=== PATIENT | male | born 1990 | race Caucasian/White ===

== ENCOUNTER 2025-05-07 08:32 | Outpatient (CLI) | payer BC, SELFPAY | END 2025-05-07 08:33 | disposition home or self-care (01) | LOC: AMB 05-10 19:29 | PROVIDERS: Visit Provider Emergency Medicine Emergency Medical Services | DX: R07.89 Other chest pain (principal); R20.0 Anesthesia of skin | CPT/HCPCS: A0425; A0427 ==

== ENCOUNTER 2025-05-07 09:02 | Emergency (ER) | payer BC, SELFPAY ==
[2025-05-07 09:15] VITALS: BP 152/105; PULSE 81; RESP 18; TEMP 36.4; O2SAT 98; BMI 35.3
--- NOTE | 2025-05-07 09:52 | ED_ITS ---
HPI - Anxiety General Chief Complaint: Anxiety Stated Complaint: Anxiety Time Seen by Provider: 05/07/25 09:37 History of Present Illness HPI narrative: This 34-year-old male comes in reporting anxiety and panic symptoms after having nausea and vomiting for the past 3 days. He takes Seroquel at night and has been taking Effexor but because of the nausea and vomiting he did not take it for the past 3 days. He states that he is typically taking 225 mg daily. He also uses medical marijuana daily. He had some Zofran which he felt was helping him at times but today he use that is all the bowl tablet and immediately spit up. He feels better now with regard to the panic symptoms he was feeling. He does not report any suicidality or feeling unsafe to himself. Related Data Home Medications ?Medication ?Instructions ?Recorded ?Confirmed quetiapine .ROUTE 05/07/25 venlafaxine PO 05/07/25 Previous Rx's ?Medication ?Instructions ?Recorded lorazepam 1 mg tablet (Ativan) 1 mg PO BID-TID PRN #6 tabs 05/07/25 ondansetron 4 mg disintegrating 4 mg PO Q6H #20 tabs 1 07/07/24 tablet Allergies Allergy/AdvReac Type Severity Reaction Status Date / Time Penicillins Allergy Unknown Verified 05/07/25 09:14 Review of Systems Status of ROS: Reports: 10 or more systems reviewed and unremarkable except as noted in History and below Narrative: Constitutional: No fevers, no weight gain or loss. Eyes: No discharge. No vision changes. HENT: No congestion, no sore throat, no ear pain. Cardiovascular: No chest pain, no palpitations. Respiratory: No shortness of breath, no wheezes, no cough. Gastrointestinal: No abdominal pain, no diarrhea. Nausea and vomiting for the past 3 days. Genitourinary: No dysuria, no hematuria. Musculoskeletal: Normal range of motion. Skin: No rashes, no pruritis. Neurological: No dizziness, weakness, sensory change, speech change. Endo/Heme/Allergies: No bruising or bleeding. No polydipsia. Pysch: no suicidality, no insomnia. Anxiety symptoms as described above. All other systems reviewed and are negative. Exam Narrative: Exam Narrative: Constitutional: Well-developed, well-nourished, no acute distress. HEENT: Normocephalic, atraumatic. Neck: Normal range of motion. Nontender. Supple. Heart: Intact distal pulses. Lungs: No chest discomfort. No wheezes, rhonchi, or rales. Abdomen: Nontender. Back: Normal range of motion. Extremities: Normal range of motion. No injury. Skin: Intact. No rash. Warm. No erythema or pallor. Neurologic: No altered sensation. No weakness. Alert and oriented. Psychiatric: No suicidality. Nursing notes and vitals signs are reviewed. Const: Vital Signs, click to edit/add: Vital Signs - 24 hr 05/07/25 09:15 Temperature 97.6 F Pulse Rate [Pulse Oximeter] 81 Respiratory Rate 18 Blood Pressure [Ri ght Upper Arm] 152/105 H Pulse Oximetry 98 Oxygen Delivery Me thod Room Air Course Vital Signs Vital signs: Initial Vital Signs Temperature 97.6 F 05/07/25 09:15 Temperature Source Temporal Artery Scan 05/07/25 09:15 Pulse Rate 81 05/07/25 09:15 Respiratory Rate 18 05/07/25 09:15 Blood Pressure 152/105 H 05/07/25 09:15 Blood Pressure Mean 120 H 05/07/25 09:15 Pulse Oximetry 98 05/07/25 09:15 Oxygen Delivery Method Room Air 05/07/25 09:15 Vital Signs Temperature 97.6 F 05/07/25 09:15 Pulse Rate 81 05/07/25 09:15 Respiratory Rate 18 05/07/25 09:15 Blood Pressure 152/105 H 05/07/25 09:15 Pulse Oximetry 98 05/07/25 09:15 Oxygen Delivery Method Room Air 05/07/25 09:15 Temperature 97.6 F 05/07/25 09:15 Pulse Rate 81 05/07/25 09:15 Respiratory Rate 18 05/07/25 09:15 Blood Pressure 152/105 H 05/07/25 09:15 Pulse Oximetry 98 05/07/25 09:15 Oxygen Delivery Method Room Air 05/07/25 09:15 Medications Administered Medications: Discontinued Medications Generic Name Dose Route Start Last Admin Trade Name Freq PRN Reason Stop Dose Admin Lorazepam 1 mg 05/07/25 09:51 05/07/25 10:07 Lorazepam 1 Mg Tablet PO 05/07/25 09:52 1 mg ONCE ONE Administration Ondansetron HCl 4 mg 05/07/25 09:51 05/07/25 10:07 Ondansetron 2 Mg/Ml Inj IVP 05/07/25 09:52 4 mg ONCE ONE Administration Venlafaxine HCl 225 mg 05/07/25 09:52 05/07/25 10:39 Venlafaxine Er 75 Mg Capsule PO 05/07/25 09:53 225 mg ONCE ONE Administration MDM - Anxiety MDM Narrative Medical decision making narrative: This patient comes in reporting panic and anxiety symptoms and has had nausea and vomiting for the past 3 days or so. He did not take his Effexor 225 mg daily extended release over these past 3 days and may be having some withdrawal symptoms as he has not taken this medicine. He also uses medical marijuana and this may be inducing some vomiting and nausea symptoms. He does not show sign of panic but does have anxiety symptoms. I did give an oral dose of Ativan 1 mg and an IV dose of Zofran 4 mg. The patient states that he is feeling better. He also received an oral dose of Effexor 225 mg extended release. He is okay to be discharged home. I advised him to resume his current medications as directed and also stated that the nausea and vomiting may be related to his marijuana use. He did receive a prescription for more tablets of Zofran and for 6 tablets of Ativan. He understands that we will not repeat Ativan prescriptions out of the emergency department. Discharge Plan Discharge Clinical Impression: Acute anxiety, Nausea & vomiting Patient Disposition: Home, Self-Care Condition: Improved Additional Instructions: Resume current medications as prescribed. Use Zofran and Ativan for symptomatic relief as prescribed. Follow-up with primary physician for ongoing management. Prescriptions: New lorazepam [Ativan] 1 mg tablet 1 mg PO BID-TID PRNQty: 6 0RF ondansetron 4 mg tablet,disintegrating 4 mg PO Q6H Qty: 20 0RF No Action venlafaxine PO quetiapine [Seroquel] .ROUTE Follow Up/Referrals: Provider,Not a Local [Primary Care Provider, Family Practice] Stand Alone Forms: SE Holding Info Instructions
[2025-05-07] MEDS: ONDANSETRON 2 MG/ML inj 4 MG IVP (10:07)
[2025-05-07] MEDS: VENLAFAXINE ER 75 MG CAPSULE 225 MG PO (10:39)
[2025-05-07 11:01] VITALS: BP 150/97; PULSE 83; RESP 18; O2SAT 95
== END 2025-05-07 11:04 | disposition home or self-care (01) ==
PROVIDERS: Emergency Provider Emergency Medicine Emergency Medical Services
DX: F41.9 Anxiety disorder, unspecified (principal); R11.2 Nausea with vomiting, unspecified
CPT/HCPCS: 96374; 99284; A9270; J2405

== ENCOUNTER 2025-05-14 15:38 | Emergency (ER) | payer BC, SELFPAY ==
--- OUTSIDE RECORDS SUMMARY | 2025-04-13 11:58 | XMS_ITS | Encounter Summary ---
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 Phone Clinic - [facility] Primary Ca re Provider Reason for Visit * Reason Comments Numbness Anxiety Chest Pain Encounter Details Date Type Department Care Team (Late st Contact Info) Description 04/13/2025 12:58 PM CDT - 04/13/2025 5:30 PM CDT Emergency [facility] Emergency Dept [address] [place] [phone] Chuck Murray DO [facility] [address] [place] [address] [place] [id number] Bereket Vazquez MD Acute reaction to stress (Primary Dx); Nausea and vomiting, unspecified vomiting type; Paresthesias Discharge Disposition: Home or Self Care Social History Tobacco Use Types Packs/Day Years Used Date Smoking Tobacco: Every Day Cigarettes 0.5 2 Smokeless Tobacco: Former Alcohol Use Standard Drinks/Week Comments No 0 (1 standard drink = 0.6 oz pur e alcohol) Adolescent Education Answer Date Record ed Getting School Help Needed Not on file 03/16 Sex and Gender Information Value Date Recorded Sex Assigned at Male 10/12/2020 9:28 PM CDT Legal Sex Male 3:23 AM [employer]OCK [employer]ORTER Gender Identity Male 10/12/2020 9:28 PM CDT Sexual Orientation Not on file documented as of this encounter Last Filed Vital Signs Vital Sign Reading Time Taken Comments Blood Pressure 179/105 04/13/2025 5:00 PM CDT Pulse 76 04/13/2025 5:00 PM CDT Temperature 37.2 C (98.9 F) 04/13/2025 4:10 PM CDT Respiratory Rate 28 04/13/2025 4:00 PM CDT Oxygen Saturation 100% 04/13/2025 4:00 PM CDT Inhaled Oxygen Concentration - - Weight 131.5 kg (290 lb) 04/13/2025 1:13 PM CDT Height 182.9 cm (6') 04/13/2025 1:13 PM CDT Body Mass Index 39.33 04/13/2025 1:13 PM CDT documented in this encounter Discharge Instructions * Attachments The following attachments cannot be sent through Care Everywhere. * Numbness and Tingling ([place]) * Nausea and Vomiting ([place]) * Panic Attacks ([place]) documented in this encounter Medications at Time of Discharge ondansetron (ZOFRAN ODT) 4 MG ODT tab Take 1 tablet (4 mg) by mouth every 6 hours as needed for vomiting or nausea. 10 tablet 04/13/2025 albuterol (PROAIR HFA/PROVENTIL HFA/VENTOLIN HFA) 108 (90 Base) MCG/ACT inhaler Inhale 2 puffs into the lungs every 6 hours as needed for shortness of breath, wheezing or cough 18 g 09/24/2023 amLODIPine (NORVASC) 5 MG tabletIndications: Benign essential hypertension Take 1 tablet (5 mg) by mouth daily 90 tablet 08/30/2022 documented as of this encounter ED Notes * Bereket Vazquez MD - 04/13/2025 5:21 PM CDT 5:21 PM - 3rd troponin sent and in process. Patient does not want to wait for results. Low pre-testprobability for ACS or acute cardiac emergency. Patient stable for discharge. Will call patient if 3rd troponin showing significant further increase or other concern. Dispostion: Discharged. 6:05 PM - 3rd troponin mildly elevated from 19 to 25 which is a less than 7 point increase. I reviewed the patient's EKG which was unchanged from previous EKGs. He had no chest pain. Overall evaluation is not consistent with ACS or acute myopericarditis. I attempted to call the patient to discuss these results and go over close return precautions however the phone number listed in the chart for the patient is not in service. Bereket Vazquez MD 04/13/25 1723 Bereket Vazquez MD 04/13/25 1808 * Melissa Jordan RN - 04/13/2025 5:19 PM CDT Patient states his ride is going to be here in 8 minutes and would like to skip the last blood test. Dr. Vazquez notified. * Melissa Jordan RN - 04/13/2025 4:03 PM CDT Patient ambulated to the bathroom independently. * Yamil Acharya RN - 04/13/2025 1:28 PM CDT Bed: ED03 Expected date: Expected time: Means of arrival: Comments: Stabe 3 * Chuck Murray DO - 04/13/2025 1:10 PM CDT Emergency Department Note History of Present Illness Chief Complaint Numbness, Anxiety, nausea HPI Junior Montero is a 34 year old male presents with paresthesias, anxiety, and nausea/vomiting.Patient reports that he woke up in his usual state of health this morning. He was at a storage unitwhen he felt the urge to have a bowel movement. Patient went to have a bowel movement and felt nauseous like he needed to vomit which she reports has happened times in the past when he defecates. Patient did not vomit and began feeling lightheaded, anxious, and sweaty. Symptoms progressed and he called EMS. En route patient endorsed increasing anxiety and was provided 1 mg Versed, 8 mg Zofran, and 324 mg aspirin. EMS had concern for potential diffuse ST elevation. Patient denies chest pain, back pain, shortness of breath, headache, or abdominal pain; endorses intermittent paresthesias bilaterally to his arms and legs. On initial assessment patient is nauseous, hyperventilating, and endorsessignificant anxiety. He is a non-smoker. Denies drug use other than marijuana. No cardiac history. Independent Historian None Review of External Notes N/A Past Medical History Medical History and Problem List No past medical history on file. Medications albuterol (PROAIR HFA/PROVENTIL HFA/VENTOLIN HFA) 108 (90 Base) MCG/ACT inhaler amLODIPine (NORVASC) 5 MG tablet Surgical History Past Surgical History: Procedure Laterality Date SURGICAL HISTORY OF - 07/30 tendon repair right small finger ZZC NONSPECIFIC PROCEDURE Echocardiogram- Physical Exam Patient Vitals for the past 24 hrs: BP Temp Temp src Pulse Resp SpO2 Height Weight 04/13/25 1610 -- 98.9 ??F (37.2 ??C) Oral -- -- -- -- -- 04/13/25 1500 (!) (P) 166/105 -- -- 65 10 98 % -- -- 04/13/25 1330 -- -- -- 69 -- 100 % -- -- 04/13/25 1328 -- -- -- 58 -- 100 % -- -- 04/13/25 1316 -- -- -- 75 -- 100 % -- -- 04/13/25 1315 -- -- -- 89 -- 100 % -- -- 04/13/25 1314 -- -- -- 78 -- 100 % -- -- 04/13/25 1313 -- -- -- -- -- -- 1.829 m (6') 131.5 kg (290 lb) 04/13/25 1310 -- -- -- -- 20 -- -- -- 04/13/25 1309 (!) 184/82 (!) 96.7 ??F (35.9 ??C) -- -- -- -- -- -- 04/13/25 1308 -- -- -- 80 -- -- -- -- 04/13/25 1307 -- -- -- 77 -- 100 % -- -- 04/13/25 1306 -- -- -- 68 -- 100 % -- -- 04/13/25 1305 -- -- -- 85 -- 100 % -- -- 04/13/25 1304 -- -- -- 73 -- 100 % -- -- 04/13/25 1303 (!) 163/61 -- -- 79 -- 100 % -- -- 04/13/25 1302 -- -- -- 78 -- 100 % -- -- 04/13/25 1301 -- -- -- 78 -- 100 % -- -- Physical Exam General: Alert and cooperative with exam. Patient in mild distress. Normal mentation. Head: Scalp is NC/AT Eyes: No scleral icterus, PERRL ENT: The external nose and ears are normal. The oropharynx is normal and without erythema; mucus membranes are moist. Uvula midline, no evidence of deep space infection. Neck: Normal range of motion without rigidity. CV: Regular rate and rhythm No pathologic murmur Resp: Breath sounds are clear bilaterally Hyperventilating. GI: Abdomen is soft, no distension, no tenderness. No peritoneal signs MS: No lower extremity edema Skin: Warm and diaphoretic, No rash or lesions noted. Neuro: Oriented x 3. No gross motor deficits. Diagnostics Lab Results Labs Ordered and Resulted from Time of ED Arrival to Time of ED Departure BASIC METABOLIC PANEL (LIMITED OCCURRENCES) - Abnormal Result Value Sodium 139 Potassium 3.9 Chloride 101 Carbon Dioxide (CO2) 18 (*) Anion Gap 20 (*) Urea Nitrogen 12.6 Creatinine 1.08 GFR Estimate >90 Calcium 10.4 Glucose 156 (*) CBC WITH PLATELETS (LIMITED OCCURRENCES) - Normal WBC Count 8.76 RBC Count 5.17 Hemoglobin 15.9 Hematocrit 44.9 MCV 86.8 MCH 30.8 MCHC 35.4 RDW 12.9 Platelet Count 245 TROPONIN T, HIGH SENSITIVITY - Normal Troponin T, High Sensitivity 9 INR - Normal INR 1.10 PT 14.0 PARTIAL THROMBOPLASTIN TIME - Normal aPTT 22 TROPONIN T, HIGH SENSITIVITY - Normal Troponin T, High Sensitivity 19 TROPONIN T, HIGH SENSITIVITY Imaging XR Chest Port 1 View Final Result IMPRESSION: Negative chest. EKG ECG results from 04/13/25 EKG 12 lead Value Systolic Blood Pressure Diastolic Blood Pressure Ventricular Rate 66 Atrial Rate 66 [place] Interval 200 QRS Duration 92 QT 360 QTc 377 P Norwood 24 R AXIS 42 T [place] 45 Interpretation ECG Sinus rhythm with marked sinus arrhythmia Otherwise normal ECG When compared with ECG of 13-Apr-2025 13:02, No significant change was found Independent Interpretation CXR: No pneumothorax, infiltrate, or pleural effusion. ED Course Medications Administered Medications LORazepam (ATIVAN) injection 1 mg (1 mg Intravenous $Given 04/13/25 1309) droPERidol (INAPSINE) injection 1.25 mg (1.25 mg Intravenous $Given 04/13/25 1335) ondansetron (ZOFRAN) injection 4 mg (4 mg Intravenous $Given 04/13/25 1613) Procedures Procedures Discussion of Management None ED Course Additional Documentation None Medical Decision Making / Diagnosis [facility] Diagnoses: None MIPS None [facility] Junior Montero is a 34 year old male presents with sudden onset nausea/vomiting, full body paresthesias, and patient concern for anxiety attack. Patient's medical history and records were reviewed. Patient was initially seen in the stabilization room as EMS had concern for potential diffuse STelevation. On evaluation patient has no chest pain or shortness of breath and EKG demonstrates normal sinus rhythm without evidence of acute ischemia, infarction, or significant arrhythmia. Additionally there is no significant change on repeat EKG. Chest x-ray without acute findings. Abdominal examis benign. Neurologic exam is nonfocal and paresthesias resolved with treatment of anxiety. Patientwas provided Ativan and later droperidol with significant improvement in symptoms. Repeat abdominalexam is benign and patient is tolerating oral intake. Labs were notable for initial negative troponin (10); repeat troponin came back within normal range though more elevated at 19. While patient's presentation likely represents acute stress reaction, after discussion with patient, elected to proceed with obtaining third troponin to ensure no concerning elevation. If repeat troponin testing is not significantly elevated then patient can be discharged with outpatient follow-up (patient prefers to follow-up locally in [place]). Return precautions were discussed with patient. Provided prescrip tion for Zofran. Disposition Patient's care was transferred to my partner Dr. Vazquez pending repeat troponin and reassessment. Diagnosis ICD-10-CM 1. Acute reaction to stress F43.0 2. Nausea and vomiting, unspecified vomiting type R11.2 3. Paresthesias R20.2 Discharge Medications New Prescriptions No medications on file Chuck Murray DO 04/13/25 1625 * Yamil Acharya RN - 04/13/2025 1:01 PM CDT BIBA from storage unit, pt became diaphoretic, nausea, and reports new onset chest tightness and numbness and tingling in all 4x extremities, only PMH is anxiety, pt received 1 mg versed, 8mg xofran,324 ASA, and 500cc NS NURSE PRN * Ken Osorio RN - 04/13/2025 12:58 PM CDT Bed: ST03 Expected date: Expected time: Means of arrival: Comments: [id number] CHest pain, 34M EKG elevation throughout, ASA and zofran given documented in this encounter Plan of Treatment Not on file documented as of this encounter Procedures Procedure Name Priority Date/Time Associated Diagnosis Comments TROPONIN T, HIGH SENSITIVITY STAT 04/13/2025 5:18 PM CDT EKG 12-LEAD, TRACING ONLY STAT 04/13/2025 3:47 PM CDT TROPONIN T, HIGH SENSITIVITY STAT 04/13/2025 2:59 PM CDT XR CHEST PORT 1 VIEW STAT 04/13/2025 1:09 PM CDT CBC WITH PLATELETS (LIMITED OCCURRENCES) STAT 04/13/2025 12:59 PM CDT BASIC METABOLIC PANEL (LIMITED OCCURRENCES) STAT 04/13/2025 12:59 PM CDT TROPONIN T, HIGH SENSITIVITY STAT 04/13/2025 12:59 PM CDT INR STAT 04/13/2025 12:59 PM CDT PARTIAL THROMBOPLASTIN TIME STAT 04/13/2025 12:59 PM CDT documented in this encounter Results * (ABNORMAL) Troponin T, High Sensitivity (04/13/2025 5:18 PM CDT) [facility] Troponin T, High Sensitivity 25(H) <=22 ng/L 04/13/2025 5:36 PM CDT LABORATORY Comment: Either a High Sensitivity Troponin T baseline (0 hours) value = 100 ng/L, or an increase in High Sensitivity Troponin T = 7 ng/L at 2 hours compared to 0 hours (2-0 hours), suggests myocardial injury, and urgent clinical attention is required. If the 2-0 hours increase is <7 ng/L, a High Sensitivity Troponin T result above gender-specific reference ranges warrants further evaluation. Recommendations for further evaluation include correlation with clinical decision-making tool (e.g., HEART), a 3rd High Sensitivity Troponin T test 2 hours after the 2nd (a 20% change from baseline would represent concern), admission for observation, close PCC/cardiology follow-up, or urgent outpatient provocative testing. Blood STRUCTURE OF RIGHT UPPER LIMB / Unknown Venipuncture / Unknown 04/13/2025 5:18 PM CDT 04/13/2025 5:19 PM CDT us Chuck Murray DO LAB - BLOOD ORDERA BLES Final Result LABORATORY [facility] Lab [address] 1[address] floor, [address] [place] [address], [facility] [phone] * EKG 12 lead (04/13/2025 3:47 PM CDT) Systolic Blood Pressure mmHg RADIOLOGY RESULTS Diastolic Blood Pressure mmHg RADIOLOGY RESULTS Ventricular Rate 66 BPM RAD IOLOGY RESULTS Atrial Rate 66 BPM RADIOLOG Y RESULTS KY Interval 200 ms RADIOLOG Y RESULTS QRS Duration 92 ms RADIOLO GY RESULTS QT 360 ms RADIOLOGY RESULTS QTc 377 ms RADIOLOGY RESULTS P Norwood 24 degrees RADIOLOGY RESULTS R AXIS 42 degrees RADIOLOGY RESULTS T Norwood 45 degrees RADIOLOGY RESULTS Interpretation ECG Sinus rhythm with marked sinus arrhythmia Otherwise normal ECG When compared with ECG of 13-Apr-2025 13:02, No significant change was found Confirmed by GENERATED REPORT, COMPUTER ([id number]), associate editor Megan Boss ([id number]) on 04/13/2025 4:32:09 PM RADIOLOGY RESULTS 04/13/2025 3:47 PM CDT 04/13/2025 4:32 PM CDT Chuck Murray DO ECG ORDERABLES Ed ited Result - Final RADIOLOGY RESULTS * Troponin T, High Sensitivity (04/13/2025 2:59 PM CDT) Pathologist [facility] Troponin T, High Sensitivity 19 <=22 ng/L 04/13/2025 3:26 PM CDT LABORATORY Comment: Either a High Sensitivity Troponin T baseline (0 hours) value = 100 ng/L, or an increase in High Sensitivity Troponin T = 7 ng/L at 2 hours compared to 0 hours (2-0 hours), suggests myocardial injury, and urgent clinical attention is required. If the 2-0 hours increase is <7 ng/L, a High Sensitivity Troponin T result above gender-specific reference ranges warrants further evaluation. Recommendations for further evaluation include correlation with clinical decision-making tool (e.g., HEART), a 3rd High Sensitivity Troponin T test 2 hours after the 2nd (a 20% change from baseline would represent concern), admission for observation, close PCC/cardiology follow-up, or urgent outpatient provocative testing. Blood VENOUS LINE / Unknown Venipuncture / Unknown 04/13/2025 2:59 PM CDT 04/13/2025 3:03 PM CDT us Chuck Murray DO LAB - BLOOD ORDERA BLES Final Result [facility] Care Lab [address] 1[address] floor, [address] [place] [address], [place] [phone] * XR Chest Port 1 View (04/13/2025 1:09 PM CDT) Anatomical Region Laterality Modality Chest Digital Radiogra phy 04/13/2025 1:09 PM CDT Impressions 04/13/2025 1:11 PM CDT IMPRESSION: Negative chest. Narrative 04/13/2025 1:11 PM CDT EXAM: XR CHEST PORT 1 VIEW LOCATION: [facility] DATE: 04/13/2025 INDICATION: chest tightness COMPARISON: 09/22/2022 Procedure Note Oleksandr Cota MD - 04/13/2025 EXAM: XR CHEST PORT 1 VIEW LOCATION: [facility] DATE: 04/13/2025 INDICATION: chest tightness COMPARISON: 09/22/2022 IMPRESSION: Negative chest. Chuck Murray DO IMG DIAGNOSTIC JACKELYN GING ORDERABLES Final Result * PTT (04/13/2025 12:59 PM CDT) aPTT 22 22 - 38 Seconds 04/13/2025 1:14 PM CDT LABORATORY Blood BLOOD SPECIMEN / Unknown Venipuncture / Unknown 04/13/2025 12:59 PM CDT 04/13/2025 1:02 PM CDT Chuck Murray DO LAB - BLOOD ORDERA BLES Final Result LABORATORY [facility] Lab [address] 1[address] floor, [address] [place] [address], [facility] [phone] * INR (04/13/2025 12:59 PM CDT) Pathologist [facility] INR 1.10 0.85 - 1.15 04/13/2025 1:14 PM CDT LABORATORY PT 14.0 11.8 - 14.8 Seconds 04/13/2025 1:14 PM CDT LABORATORY Blood BLOOD SPECIMEN / Unknown Venipuncture / Unknown 04/13/2025 12:59 PM CDT 04/13/2025 1:02 PM CDT Chuck Murray DO LAB - BLOOD ORDERA BLES Final Result LABORATORY [facility] Care Lab [address], [address] [place] [address], [facility] [phone] * Troponin T, High Sensitivity (04/13/2025 12:59 PM CDT) [facility] Troponin T, High Sensitivity 9 <=22 ng/L 04/13/2025 1:26 PM CDT LABORATORY Comment: Either a High Sensitivity Troponin T baseline (0 hours) value = 100 ng/L, or an increase in High Sensitivity Troponin T = 7 ng/L at 2 hours compared to 0 hours (2-0 hours), suggests myocardial injury, and urgent clinical attention is required. If the 2-0 hours increase is <7 ng/L, a High Sensitivity Troponin T result above gender-specific reference ranges warrants further evaluation. Recommendations for further evaluation include correlation with clinical decision-making tool (e.g., HEART), a 3rd High Sensitivity Troponin T test 2 hours after the 2nd (a 20% change from baseline would represent concern), admission for observation, close PCC/cardiology follow-up, or urgent outpatient provocative testing. Blood BLOOD SPECIMEN / Unknown Venipuncture / Unknown 04/13/2025 12:59 PM CDT 04/13/2025 1:02 PM CDT us Chuck Elliott'Neill DO LAB - BLOOD ORDERA BLES Final Result [facility] Lab [address] 1[address], [address] [place] [address], [place] [phone] * (ABNORMAL) Basic Metabolic Panel (Limited Occurrences) (04/13/2025 12:59 PM CDT) [facility] Sodium 139 135 - 145 mmol/L 04/13/2025 1:26 PM CDT LABORATORY Potassium 3.9 3.4 - 5.3 mmol/L 04/13/2025 1:26 PM CDT LABORATORY Chloride 101 98 - 107 mmol/L 04/13/2025 1:26 PM CDT LABORATORY Carbon Dioxide (CO2) 18(L) 22 - 29 mmol/L 04/13/2025 1:26 PM CDT LABORATORY Anion Gap 20(H) 7 - 15 mmol/L 04/13/2025 1:26 PM CDT LABORATORY Urea Nitrogen 12.6 6.0 - 20.0 mg/dL 04/13/2025 1:26 PM CDT LABORATORY Creatinine 1.08 0.67 - 1.17 mg/dL 04/13/2025 1:26 PM CDT LABORATORY GFR Estimate >90 >60 mL/min/1.7 3m2 04/13/2025 1:26 PM CDT LABORATORY Comment:eGFR calculated usin g 2020 CKD-EPI equation. Calcium 10.4 8.8 - 10.4 mg/dL 04/13/2025 1:26 PM CDT LABORATORY Glucose 156(H) 70 - 99 mg/dL 04/13/2025 1:26 PM CDT LABORATORY Blood BLOOD SPECIMEN / Unknown Venipuncture / Unknown 04/13/2025 12:59 PM CDT 04/13/2025 1:02 PM CDT us Chuck Murray DO LAB - BLOOD ORDERA BLES Final Result LABORATORY [facility] [address] 1[address], [address] [place] [address], [facility] [phone] * CBC with Platelets (Limited Occurrences) (04/13/2025 12:59 PM CDT) WBC Count 8.76 4.00 - 11.00 10e3/uL 04/13/2025 1:08 PM CDT LABORATORY RBC Count 5.17 4.40 - 5.90 10e6/uL 04/13/2025 1:08 PM CDT LABORATORY Hemoglobin 15.9 13.3 - 17.7 g/dL 04/13/2025 1:08 PM CDT LABORATORY Hematocrit 44.9 40.0 - 53.0 % 04/13/2025 1:08 PM CDT LABORATORY MCV 86.8 78.0 - 100.0 fL 04/13/2025 1:08 PM CDT LABORATORY MCH 30.8 26.5 - 33.0 pg 04/13/2025 1:08 PM CDT LABORATORY MCHC 35.4 31.5 - 36.5 g/dL 04/13/2025 1:08 PM CDT LABORATORY RDW 12.9 10.0 - 15.0 % 04/13/2025 1:08 PM CDT LABORATORY Platelet Count 245 150 - 450 10e3/uL 04/13/2025 1:08 PM CDT LABORATORY Blood BLOOD SPECIMEN / Unknown Venipuncture / Unknown 04/13/2025 12:59 PM CDT 04/13/2025 1:02 PM CDT us Chuck Murray DO LAB - BLOOD ORDERA BLES Final Result LABORATORY [facility] [address], [address] [place] [address], [place] [phone] documented in this encounter Visit Diagnoses Diagnosis Acute reaction to stress- Primary Nausea and vomiting, unspecified vomiting type Paresthesias Disturbance of skin sensation documented in this encounter Administered Medications Inactive Administered Medications - up to 3 most recent administrations Medication Order MAR Action Action Date Dose Rate Site droPERidol (INAPSINE) injection 1.25 mg 1.25 mg, Intravenous, ONCE, Administer over 1-4 Minutes, On Fri04/13/25 at 1335, For 1 dose, Monitor EKG for 2-3 hours after administration. $Given 04/13/2025 1:35 PM CDT 1.25 mg LORazepam (ATIVAN) injection 1 mg 1 mg, Intravenous, ONCE, On Fri04/13/25 at 1310, For 1 dose, IV Route: Dilute with equal volume NS prior to use. This drug may cause significant respiratory depression. Monitor respiratory status and vital signs carefully for 1 hour after each dose. $Given 04/13/2025 1:09 PM CDT 1 mg ondansetron (ZOFRAN) injection 4 mg 4 mg, Intravenous, ONCE, Administer over 2-5 Minutes, On Fri04/13/25 at 1615, For 1 dose $Given 04/13/2025 4:13 PM CDT 4 mg documented in this encounter Active and Recently Administered Medications Times are shown in CDT. Scheduled Medication Order 04/11/2025 04/12/2025 04/13/2025 droPERidol (INAPSINE) injection 1.25 mg (COMPLETED) 1.25 mg, Intravenous, ONCE, Administer over 1-4 Minutes, On Fri04/13/25 at 1335, For 1 dose, Monitor EKG for 2-3 hours after administration. 1335 ($Given - Provi nayely: Yamil Acharya RN) LORazepam (ATIVAN) injection 1 mg (COMPLETED) 1 mg, Intravenous, ONCE, On Fri04/13/25 at 1310, For 1 dose, IV Route: Dilute with equal volume NS prior to use. This drug may cause significant respiratory depression. Monitor respiratory status and vital signs carefully for 1 hour after each dose. 1309 ($Given - Provi nayely: Yamil Acharya RN) ondansetron (ZOFRAN) injection 4 mg (COMPLETED) 4 mg, Intravenous, ONCE, Administer over 2-5 Minutes, On Fri04/13/25 at 1615, For 1 dose 1613 ($Given - Provi nayely: Melissa Jordan RN) documented in this encounter Care Teams Spinning Lathe Operator Hydraulic Relationship Specialty Start Date End Date Clinic - [facility] [address] [place] [address] PCP - General 11/08/18 documented as of this encounter
[2025-05-14] VITALS (13 sets, daily range): BP systolic 179–198; BP diastolic 110–155; PULSE 60–92; RESP 25; TEMP 36.7; O2SAT 93–100; BMI 38.0
--- OUTSIDE RECORDS SUMMARY | 2025-05-14 15:53 | XMS_ITS | Clinical Summary ---
Author Organization [place] Address [address] [place] [id number] Care Team Providers Care Inclinometer Tester Name Role Phone Clinic - [facility] Primary Ca re Provider Allergies Active Allergy Reactions Criticality Noted Date Comments Penicillins Hives 01/05/2019 Seasonal Allergies Low 10/21/2013 Medications * This document contains information received from the source organization and may not represent a complete record from that organization. amLODIPine (NORVASC) 5 MG tabletIndications :Benign essential hypertension Take 1 tablet (5 mg) by mouth daily 90 tablet 3 Active albuterol (PROAIR HFA/PROVENTIL HFA/VENTOLIN HFA) 108 (90 Base) MCG/ACT inhaler Inhale 2 puffs into the lungs every 6 hours as needed for shortness of breath, wheezing or cough 18 g 4 Active ondansetron (ZOFRAN ODT) 4 MG ODT tab Take 1 tablet (4 mg) by mouth every 6 hours as needed for vomiting or nausea. 10 tablet 5 Active Active Problems Problem Noted Date Diagnosed Date Hyperlipidemia LDL goal <160 02/17/2012 TOBACCO USE DISORDER 10/30/2007 Resolved Problems Problem Noted Date Diagnosed Date Resolved Date Depressive disorder, not elsewhere classified 10/01/19 07 02/17/2012 Cannabis dependence, continuous 09/30/2006 08/29/2015 Encounters Date Type Department Care Team Description 04/13/2025 12:58 PM CDT - 04/13/2025 5:30 PM CDT Emergency [facility] Emergency Dept [address] [place] [id number] Chuck Murray DO Daro, Ryan Clay, MD Acute reaction to stress (Primary Dx); Nausea and vomiting, unspecified vomiting type; Paresthesias Discharge Disposition: Home or Self Care 04/13/2025 Travel from Last 3 Months Immunizations Immunization Administration Dates Next Due DT (PEDS <7y) 08/27/2002 HepB 08/27/2002 MMR (MMRII) 08/27/2002 Mantoux Tuberculin Skin Test 10/13/2007 Poliovirus, inactivated (IPV) 08/27/2002 TDAP Vaccine (Boostrix) 08/20/2015 Family History Medical History Relation Comments Family History Negative Father Depression Mother Depression Sister Relation Status Comments Father Alive Maternal Grandfather Alive Maternal Grandmother Mother Alive Paternal Grandfather Alive Sister Social History Tobacco Use Types Packs/Day Years Used Date Smoking Tobacco: Every Day Cigarettes 0.5 2 Smokeless Tobacco: Former Tobacco Cessation:Ready to Q uit: Not Asked; Counseling Given: Not Answered Alcohol Use Standard Drinks/Week Comments No 0 (1 standard drink = 0.6 oz pur e alcohol) Adolescent Education Answer Date Record ed Getting School Help Needed Not on file 03/16 Sex and Gender Information Value Date Recorded Sex Assigned at Male 10/12/2020 9:28 PM CDT 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 Gender Identity Male 10/12/2020 9:28 PM CDT Sexual Orientation Not on file Last Filed Vital Signs Vital Sign Reading [...] Mass Index 39.33 04/13/2025 1:13 PM CDT Plan of Treatment Health Maintenance Due Date Last Done Comments ADVANCE CARE PLANNING 1990 ANNUAL REVIEW OF HM ORDERS 1990 LIPID 1990 HIV SCREENING 2005 YEARLY PREVENTIVE VISIT 10/12/2008 10/13/2007 HEPATITIS C SCREENING 2008 PHQ-2 (once per calendar year) 2024 COVID-19 VACCINE ( season) 2025 INFLUENZA VACCINE (#1) 2025 DTAP/TDAP/TD VACCINE (5 - Td or Tdap) 08/20/2025 08/20/2015, 08/27/2002, 02/10/1996, Additional history exists BMP 04/13/2026 04/13/2025, 07/24, 09/22/2022, Additional history exists ZOSTER VACCINE (1 of 2) 2040 HEPATITIS B VACCINE Completed 08/27/2002, 08/27/2002, 11/13/1994, Additional history exists HPV VACCINE (No Doses Required) Completed MENINGITIS VACCINE Aged Out No longer eligible based on patient's age to complete this topic PNEUMOCOCCAL VACCINE: PEDIATRICS (0 to 5 YEARS) AND AT-RISK PATIENTS (6 to 49 YEARS) Aged Out No longer eligible based on patient's age to complete this topic Procedures Procedure Name Priority Date/Time Associated Diagnosis Comments TROPONIN T, HIGH SENSITIVITY STAT 04/13/2025 5:18 PM CDT EKG 12-LEAD, TRACING ONLY STAT 04/13/2025 3:47 PM CDT TROPONIN T, HIGH SENSITIVITY STAT 04/13/2025 2:59 PM CDT XR CHEST PORT 1 VIEW STAT 04/13/2025 1:09 PM CDT PARTIAL THROMBOPLASTIN TIME STAT 04/13/2025 12:59 PM CDT INR STAT 04/13/2025 12:59 PM CDT TROPONIN T, HIGH SENSITIVITY STAT 04/13/2025 12:59 PM CDT BASIC METABOLIC PANEL (LIMITED OCCURRENCES) STAT 04/13/2025 12:59 PM CDT CBC WITH PLATELETS (LIMITED OCCURRENCES) STAT 04/13/2025 12:59 PM CDT from Last 3 Months Results * (ABNORMAL) Troponin T, High Sensitivity (04/13/2025 5:18 PM CDT) Only the most recent of3 resultswithin the time period is included. Pathologist [facility] Troponin T, High Sensitivity 25(H) <=22 ng/L [...] - BLOOD ORDERA BLES Final Result LABORATORY [facility] [address] 1[address] floor, [address] [place] [address], [facility] [phone] * EKG 12 lead (04/13/2025 3:47 PM CDT) Pathologist [facility] Systolic Blood Pressure mmHg RADIOLOGY RESULTS Diastolic Blood Pressure mmHg RADIOLOGY RESULTS Ventricular Rate 66 BPM RAD IOLOGY RESULTS Atrial Rate 66 BPM RADIOLOG Y RESULTS CA Interval 200 ms RADIOLOG Y RESULTS QRS Duration 92 ms RADIOLO GY RESULTS QT 360 ms RADIOLOGY RESULTS QTc 377 ms RADIOLOGY RESULTS P Matthews 24 degrees RADIOLOGY RESULTS R AXIS 42 degrees RADIOLOGY RESULTS T Matthews 45 degrees RADIOLOGY RESULTS Interpretation ECG Sinus rhythm with marked sinus arrhythmia Otherwise normal ECG When compared with ECG of 13-Apr-2025 13:02, No significant change was found Confirmed by GENERATED REPORT, COMPUTER ([id number]), business editor Megan Boss ([id number]) on 04/13/2025 4:32:09 PM RADIOLOGY RESULTS 04/13/2025 3:47 PM CDT 04/13/2025 4:32 PM CDT Chuck Murray DO ECG ORDERABLES Ed ited Result - Final RADIOLOGY RESULTS * XR Chest Port 1 View (04/13/2025 1:09 PM CDT) Anatomical Region Laterality Modality Chest Digital Radiogra phy 04/13/2025 1:09 PM CDT Impressions 04/13/2025 1:11 PM CDT IMPRESSION: Negative chest. Narrative 04/13/2025 1:11 PM CDT EXAM: XR CHEST PORT 1 VIEW LOCATION: [facility] DATE: 04/13/2025 INDICATION: chest tightness COMPARISON: 09/22/2022 Procedure Note Oleksandr Cota MD - 04/13/2025 EXAM: XR CHEST PORT 1 VIEW LOCATION: [facility] DATE: 04/13/2025 INDICATION: chest tightness COMPARISON: 09/22/2022 IMPRESSION: Negative chest. Chuck Murray DO IMG DIAGNOSTIC JACKELYN GING ORDERABLES Final Result * CBC with Platelets (Limited Occurrences) (04/13/2025 [...] - BLOOD ORDERA BLES Final Result LABORATORY [facility] [address], [address] [place] [address], [facility] [phone] * (ABNORMAL) Basic Metabolic Panel (Limited Occurrences) (04/13/2025 12:59 PM CDT) Sodium 139 135 - 145 mmol/L 04/13/2025 [...] 04/13/2025 1:26 PM CDT LABORATORY Comment:eGFR calculated usor 2020 CKD-EPI equation. Calcium 10.4 8.8 - 10.4 mg/dL 04/13/2025 1:26 PM CDT LABORATORY Glucose 156(H) 70 - 99 mg/dL 04/13/2025 1:26 PM CDT LABORATORY Blood BLOOD SPECIMEN / Unknown Venipuncture / Unknown 04/13/2025 12:59 PM CDT 04/13/2025 1:02 PM CDT Chuck Murray DO LAB - BLOOD ORDERA BLES Final Result [facility] [address], [address] [place] [address], [facility] [phone] * INR (04/13/2025 12:59 PM CDT) INR 1.10 0.85 - 1.15 04/13/2025 1:14 PM CDT LABORATORY PT 14.0 11.8 - 14.8 Seconds 04/13/2025 1:14 PM CDT LABORATORY Blood BLOOD SPECIMEN / Unknown Venipuncture / Unknown 04/13/2025 12:59 PM CDT 04/13/2025 1:02 PM CDT Chuck Murray DO LAB - BLOOD ORDERA BLES Final Result [facility] [address], [address] [place] [address], [facility] [phone] * PTT (04/13/2025 12:59 PM CDT) aPTT 22 22 - 38 Seconds 04/13/2025 1:14 PM CDT LABORATORY Blood BLOOD SPECIMEN / Unknown Venipuncture / Unknown 04/13/2025 12:59 PM CDT 04/13/2025 1:02 PM CDT us Chuck Murray DO LAB - BLOOD ORDERA BLES Final Result LABORATORY [facility] [address] floor, [address] [place] [address], [facility] [phone] from Last 3 Months Insurance [employer] [place] [facility] Address: [id number] [place] [phone] [employer] [place] Care Teams Inclinometer Tester Relationship Specialty Start Date End Date Clinic - [facility] [address] [place] [address] PCP - General 11/08/18
--- OUTSIDE RECORDS SUMMARY | 2025-05-14 15:53 | XMS_ITS | Encounter Summary ---
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
--- NOTE | 2025-05-14 16:39 | CRLHL7_ITS ---
For Patients: As a result of the Century Cures Act, medical imaging exams and procedure reports are released immediately into your electronic medical record. You may view this report before your referring provider. If you have questions, please contact your health care provider. INDICATION: Diffuse abdominal pain nausea TECHNIQUE: CT abdomen and pelvis with 120 mL Isovue 370 intravenous contrast. COMPARISON: No comparison FINDINGS: Lower chest: Unremarkable. Liver: Normal in size and attenuation. No suspicious masses. Gallbladder and bile ducts: No stones or inflammation. No biliary dilatation. Pancreas: Unremarkable. No mass or inflammation. Spleen: Normal in size. No masses. Adrenal glands: Normal in size. No nodules. Kidneys: Normal in size. No suspicious masses, stones, or hydronephrosis. GI tract: Unremarkable. Normal in caliber. No sign of mass or inflammation. Normal appendix. Abundant stool Vasculature: Abdominal aorta is normal in caliber. Lymph nodes: No lymphadenopathy. Peritoneum/Abdominal Wall: Small fat containing in the colon inguinal hernias. Tiny fat containing umbilical hernia. Pelvis: Unremarkable. No pelvic masses. Mild wall thickening of the urinary bladder is incompletely distended. Bones: Unremarkable for age. IMPRESSION: 1. No acute wall findings in the abdomen or pelvis. Wall thickening of the urinary bladder which is incompletely distended which could be correlated for possible cystitis. Please note that all CT scans at this facility use dose modulation, iterative reconstruction, and/or weight-based dosing when appropriate to reduce radiation dose to as low as reasonably achievable. Dictated by Linette Godfrey MD @ 05/14/2025 6:34:28 PM (Electronically Signed)
--- NOTE | 2025-05-14 17:10 | CRLHL7_ITS ---
For Patients: As a result of the Century Cures Act, medical imaging exams and procedure reports are released immediately into your electronic medical record. You may view this report before your referring provider. If you have questions, please contact your health care provider. INDICATION: Chest pain. TECHNIQUE: Chest 2 views. COMPARISON: None. FINDINGS: Cardiovascular and mediastinum: Heart size is normal. Unremarkable mediastinum. Lungs and pleural spaces: Lungs are clear. No sign of infiltrate or mass. No sign of pleural effusion. No pneumothorax. Bones and soft tissues: No significant findings. IMPRESSION: No acute cardiopulmonary process. Dictated by Craig Banegas MD @ 05/14/2025 6:13:07 PM (Electronically Signed)
--- NOTE | 2025-05-14 17:10 | ED.NAVMDI ---
HPI - Nausea/Vomiting/Diarrhea General Date Seen: 05/14/25 Chief complaint: Nausea/Vomiting Stated complaint: Dizzy, Nausea, brown vomit Time Seen by Provider: 05/14/25 16:27 Source: patient Mode of arrival: ambulatory Limitations: no limitations History of Present Illness HPI Narrative: Patient is a 34-year-old male presenting to the emergency department for nausea and vomiting. He has a chronic daily marijuana smoker. He states started about a month ago he would begin having episodes of severe nausea and vomiting the last about 3-4 days. Symptoms have occurred now about for 5 times. Has been seen 3 times for the symptoms he states. Has been having brown colored vomit he states. Has not noticed any blood in his vomit. Also states he is having a panic attack. Was seen for these exact symptoms including the panic attack a week ago. Was doing better after that nausea medicine and Ativan. States he has also been having chest pain and abdominal pain over the past month that have been intermittent and start after he has multiple episodes of vomiting. Pain is throughout his abdomen. States he feels short of breath but does think it is related to him being very anxious. Has not had any fevers or chills but has been diaphoretic. And denies headache or vision changes. Denies dysuria, diarrhea, constipation. States he has been unable to eat anything for the past few days due to the nausea. Related Data Home Medications ?Medication ?Instructions ?Recorded ?Confirmed quetiapine .Route 05/07/25 venlafaxine PO 05/07/25 Previous Rx's ?Medication ?Instructions ?Recorded lorazepam 1 mg tablet (Ativan) 1 mg PO BID-TID PRN #6 tabs 05/07/25 ondansetron 4 mg disintegrating 4 mg PO Q6H #20 tabs 05/07/25 tablet Allergies Allergy/AdvReac Type Severity Reaction Status Date / Time Penicillins Allergy Unknown Verified 05/14/25 17:52 Review of Systems Status of ROS: Reports: 10 or more systems reviewed and unremarkable except as noted in History and below PFSH PFS Social History Smoking Status: Current every day smoker Do you use any of these nicotine containing products: E-Cigarettes Second hand tobacco smoke exposure: No How often do you have a drink containing alcohol: never AUDIT-C Alcohol total score: 0 Non-prescribed substance use: former substance user and marijuana (any form) Exam Narrative: Exam Narrative: Const: Well-nourished, Well-developed, in moderate distress, diaphoretic Eyes: No conjunctival injection, and symmetrical lids HENT: Atraumatic external nose and ears. Moist mucous membranes. Neck: Symmetric, trachea midline, No thyromegaly. CVS: RRR, No murmurs or gallops. Peripheral pulses 2+ and equal in all extremities RESP: Unlabored respiratory effort. Clear to auscultation bilaterally. GI: Diffuse mild abdominal tenderness, Nondistended, No rebound or guarding. MSK:Extremities w/o deformity, Normal Active ROM, no crepitus Skin: Warm, Dry. No rashes or lesions. Neuro: Normal Muscle tone, No focal neurological deficits. Psych: Awake, Alert, & Oriented x3. Appropriate mood and affect. Const: Vital Signs, click to edit/add: Vital Signs - 24 hr 05/14/25 15:52 05/14/25 16:04 05/14/25 17:28 Temperature 98.0 F Pulse Rate 92 70 Pulse Rate [Right Pulse Oximeter] 86 Respiratory Rate 25 H Blood Pressure Blood Pressure [Ri ght Upper Arm] 179/149 H Pulse Oximetry 100 100 100 Oxygen Delivery Me thod Room Air 05/14/25 17:30 05/14/25 17:36 05/14/25 17:45 Temperature Pulse Rate 83 67 60 Pulse Rate [Right Pulse Oximeter] Respiratory Rate Blood Pressure 191/110 H Blood Pressure [Ri ght Upper Arm] Pulse Oximetry 100 98 93 Oxygen Delivery Me thod 05/14/25 18:00 05/14/25 18:03 05/14/25 18:15 Temperature Pulse Rate 78 77 80 Pulse Rate [Right Pulse Oximeter] Respiratory Rate Blood Pressure 198/155 H Blood Pressure [Ri ght Upper Arm] Pulse Oximetry 100 97 96 Oxygen Delivery Me thod 05/14/25 19:26 Temperature Pulse Rate 67 Pulse Rate [Right Pulse Oximeter] Respiratory Rate Blood Pressure Blood Pressure [Ri ght Upper Arm] Pulse Oximetry 99 Oxygen Delivery Me thod Course Vital Signs Vital signs: Initial Vital Signs Temperature 98.0 F 05/14/25 15:52 Temperature Source Temporal Artery Scan 05/14/25 15:52 Pulse Rate 86 05/14/25 15:52 Respiratory Rate 25 H 05/14/25 15:52 Blood Pressure 179/149 H 05/14/25 15:52 Blood Pressure Mean 159 H 05/14/25 15:52 Blood Pressure Position Sitting 05/14/25 15:52 Pulse Oximetry 100 05/14/25 15:52 Oxygen Delivery Method Room Air 05/14/25 15:52 Vital Signs Temperature 98.0 F 05/14/25 15:52 Pulse Rate 86 05/14/25 15:52 Respiratory Rate 25 H 05/14/25 15:52 Blood Pressure 179/149 H 05/14/25 15:52 Pulse Oximetry 100 05/14/25 15:52 Oxygen Delivery Method Room Air 05/14/25 15:52 Temperature 98.0 F 05/14/25 15:52 Pulse Rate 67 05/14/25 19:26 Respiratory Rate 25 H 05/14/25 15:52 Blood Pressure 198/155 H 05/14/25 18:03 Pulse Oximetry 99 05/14/25 19:26 Oxygen Delivery Method Room Air 05/14/25 15:52 Medications Administered Medications: Discontinued Medications Generic Name Dose Route Start Last Admin Trade Name Freq PRN Reason Stop Dose Admin Haloperidol Lactate 5 mg 05/14/25 16:39 05/14/25 17:24 Haloperidol 5 Mg/Ml Inj IV 05/14/25 16:40 5 mg ONCE ONE Administration Lorazepam 1 mg 05/14/25 17:12 05/14/25 17:30 Lorazepam 2 Mg/Ml Inj IVP 05/14/25 17:13 1 mg ONCE ONE Administration MDM - Nausea/Vomiting/Diarrhea MDM Narrative Medical decision making narrative: Patient is a 34-year-old male presenting to the emergency department for nausea, vomiting, abdominal pain. I believe his symptoms are most likely related to cannabinoid hyperemesis syndrome considering his daily use but differential includes pancreatitis, small-bowel obstruction, gallbladder liver disease, electrolyte abnormalities. Is also having some chest pain. This is likely related to his vomiting. He is not tachycardic and seems unlikely to be an esophageal rupture by will do chest x-ray to look for any a abnormalities. EKG and troponin also ordered. Haldol given for likely cannabinoid hyperemesis syndrome an Ativan given for his anxiety. Lab work returned with slightly elevated liver enzymes but not high enough to be of acute concern. I believe he follow-up these outpatient. Troponin within normal limits. Considering length symptoms do not believe repeat troponin is necessary. Chest x-ray interpreted by myself and the radiologist showed no acute concerning abnormalities. EKG interpreted by myself shows no acute concerning findings. CT of his abdomen pelvis interpreted by myself and the radiologist independently showed no acute concerning abnormalities. It is in the there was some concern for cystitis but he is not having any urinary symptoms. Denies hematuria or dysuria. He is feeling much better after the medication. I do believe his symptoms are related to cannabinoid hyperemesis syndrome. Diagnosis: Cannabinoid hyperemesis syndrome Lab Data Labs: Lab Results 05/14/25 05/14/25 05/14/25 Range/Units 17:09 18:00 19:00 WBC 11.68 H (4.50-11.00) K/uL RBC 5.55 (4.30-5.90) m/uL Hgb 16.7 (13.5-17.5) gm/dL Hct 48.6 (37.0-53.0) % MCV 88 (80-100) fL MCH 30 (26-34) pg MCHC 34 (32-36) gm/dL RDW Coeff of Joe 12.9 (11.5-15.5) % Plt Count 314 (140-440) K/uL Neut % (Auto) 74.1 H (42.0-72.0) % Lymph % (Auto) 16.7 L (20-44) % Gray % (Auto) 8.1 (0.0-11.0) % Eos % (Auto) 0.2 (0.0-7.0) % Baso % (Auto) 0.5 (0.0-3.0) % Neut # (Auto) 8.70 H (1.7-7.0) K/uL Lymph # (Auto) 2.00 (0.90-2.90) K/uL Gray # (Auto) 0.90 (0.00-0.90) K/UL Eos # (Auto) 0.00 (0.00-0.50) K/uL Baso # (Auto) 0.10 (0.00-0.30) K/uL Abs Immat Gran (auto) 0.00 (0.00-0.30) K/uL Imm/Tot Granulo (auto) 0.4 % Sodium 138 (135-149) mmol/L Potassium 4.5 (3.6-5.1) mmol/L Chloride 98 (96-114) mmol/L Carbon Dioxide 23 (20-32) mmol/L Anion Gap 17 H (7-15) mEq/L BUN 12 (5-24) mg/dL Creatinine 1.1 (0.5-1.5) mg/dL Estimated Creat Clear 103.86 Estimated GFR 90 ml/min Glucose 133 H (60-115) mg/dL Calcium 10.1 (8.4-10.6) mg/dL Magnesium 1.9 (1.5-2.6) mg/dL Total Bilirubin 1.8 H (0.1-1.5) mg/dL Direct Bilirubin 0.6 H (0.0-0.5) mg/dL AST 44 H (12-35) U/L ALT 56 H (4-50) U/L Alkaline Phosphatase 74 (40-150) U/L Troponin I < 0.01 (0.01-0.04) ng/mL Total Protein 9.5 H (6.0-8.3) g/dL Albumin 5.7 H (3.3-5.0) g/dL Lipase 91 (23-300) U/L Lab Acknowledgement Cancelled Imaging Data Chest x-ray: Attestation: I have reviewed the pertinent imaging results. Radiologist's impression: No acute cardiopulmonary process. Dictated by Craig Banegas MD @ 05/14/2025 6:13:[address] scan abdomen and pelvis: Attestation: I have reviewed the pertinent imaging results. Radiologist's impression: 1. No acute wall findings in the abdomen or pelvis. Wall thickening of the urinary bladder which is incompletely distended which could be correlated for possible cystitis. Please note that all CT scans at this facility use dose modulation, iterative reconstruction, and/or weight-based dosing when appropriate to reduce radiation dose to as low as reasonably achievable. Dictated by Linette Godfrey MD @ 05/14/2025 6:34:28 PM ECG Data Attestation: I personally reviewed and interpreted this ECG as follows: Prior ECG tracings: not available for review Interpretation: Sinus bradycardia with a rate of 58 beats per minute, normal intervals, normal axis, no ST or T-wave abnormalities. Discharge Plan Discharge Clinical Impression: Cannabinoid hyperemesis syndrome Patient Disposition: Home, Self-Care Condition: Improved Instructions: Cyclic Vomiting Syndrome (ED) Additional Instructions: Your symptoms are likely from cannabinoid hyperemesis syndrome. I recommend stopping all use of marijuana. Symptoms may take several months to fully resolved. You can try using topical capsaicin or taking hot showers and symptoms occur. Return to emergency department for new or worsening symptoms. Recommend follow-up with your primary care provider for your elevated liver enzymes. Prescriptions: No Action venlafaxine PO quetiapine [Seroquel] .Route lorazepam [Ativan] 1 mg tablet 1 mg PO BID-TID PRNQty: 6 0RF ondansetron 4 mg tablet,disintegrating 4 mg PO Q6H Qty: 20 0RF Follow Up/Referrals: Provider,Not a Local [Primary Care Provider, Family Practice] Stand Alone Forms: [employer] Info Instructions
[2025-05-14 17:16] LABS: Hematocrit* 48.6 % (37.0-53.0); Hemoglobin* 16.7 gm/dL (13.5-17.5); Immature Granulocytes Pct Auto 0.4 %; Mean Corpuscular HGB Conc 34 gm/dL (32-36); Mean Corpuscular Hemoglobin 30 pg (26-34); Mean Corpuscular Volume 88 fL (80-100); RDW Coefficient of Variation % 12.9 % (11.5-15.5); Red Blood Count* 5.55 m/uL (4.30-5.90); White Blood Count* 11.68 K/uL (4.50-11.00)
[2025-05-14 17:17] LABS: Immature Granulocytes Abs Auto 0.00 K/uL (0.00-0.30); Lymphocytes Absolute Auto 2.00 K/uL (0.90-2.90); Slide Review Reflex No
[2025-05-14 17:34] LABS: Chloride* 98 mmol/L (96-114)
[2025-05-14 17:35] LABS: Sodium* 138 mmol/L (135-149)
[2025-05-14 17:37] LABS: Alkaline Phosphatase* 74 U/L (40-150); Anion Gap 17 mEq/L (7-15); Blood Urea Nitrogen* 12 mg/dL (5-24); Carbon Dioxide* 23 mmol/L (20-32); Creatinine* 1.1 mg/dL (0.5-1.5); Est. Creatinine Clearance* 103.86; Estimated Glomerular Filt Rate 90 ml/min
[2025-05-14 17:38] LABS: Calcium* 10.1 mg/dL (8.4-10.6)
[2025-05-14 17:43] LABS: Albumin* 5.7 g/dL (3.3-5.0)
[2025-05-14 17:44] LABS: Alanine Aminotransferase* 56 U/L (4-50); Aspartate Amino Transferase* 44 U/L (12-35)
[2025-05-14 19:25] LABS: Bilirubin Direct* 0.6 mg/dL (0.0-0.5)
[2025-05-14 19:41] LABS: Glucose* 118 mg/dL (60-115); Total Protein* 8.5 g/dL (6.0-8.3)
[2025-05-14 19:42] LABS: Bilirubin Total* 1.6 mg/dL (0.1-1.5)
[2025-05-14 19:43] LABS: Potassium* 4.1 mmol/L (3.6-5.1)
== END 2025-05-14 20:04 | disposition home or self-care (01) ==
PROVIDERS: Emergency Provider Student in an Organized Health Care Education/Training Program
DX: R11.16 Cannabis hyperemesis syndrome (principal); F12.29 Cannabis dependence with unspecified cannabis-induced disorder; R10.9 Unspecified abdominal pain; F41.9 Anxiety disorder, unspecified; R07.9 Chest pain, unspecified; Z79.899 Other long term (current) drug therapy
CPT/HCPCS: 36415; 71046; 74177; 80053; 82248; 83690; 83735; 84484; 85025; 93005; 96374; 96375; 99284; 99285; J1630; J2060; Q9967

== ENCOUNTER 2025-06-09 10:16 | Outpatient (CLI) | payer BC, SELFPAY ==
--- NOTE | 2025-06-09 10:45 | CRLHL7_ITS ---
For Patients: As a result of the Century Cures Act, medical imaging exams and procedure reports are released immediately into your electronic medical record. You may view this report before your referring provider. If you have questions, please contact your health care provider. INDICATION: UNSPECIFIED ABDOMINAL PAIN COMPARISON: CT 05/14/2025 TECHNIQUE: Real time lee scale imaging and color Doppler analysis was performed of the gallbladder. FINDINGS: The gallbladder is of normal size and there is no evidence of intraluminal stones or sludge. The gallbladder wall measures 1 mm in thickness. The common bile duct is of normal size and measures 4 mm in diameter at the level of the santi hepatis. Increased hepatic echotexture noted with focal fatty sparing adjacent to the gallbladder. IMPRESSION: Fatty liver. Normal gallbladder. Dictated by Felix Spear MD @ 06/09/2025 10:50:49 AM (Electronically Signed)
== END 2025-06-09 10:17 | disposition home or self-care (01) ==
LOC: US 10:17
PROVIDERS: PCP Internal Medicine; Visit Provider Internal Medicine
DX: R10.9 Unspecified abdominal pain (principal); K76.0 Fatty (change of) liver, not elsewhere classified
CPT/HCPCS: 76705